=== PATIENT | female | born 1950 | race Caucasian/White ===

== ENCOUNTER 2021-09-29 10:56 | Outpatient (RCR) | payer MEDICARE, MEDICAID, SELFPAY ==
--- NOTE | 2021-09-29 12:15 | MHC.PT.EP ---
[facility] [place] Office [place] [facility] [place] [facility] [address] [phone] F: [phone] F: [phone] F: [phone] F: [phone] Physical Therapy Plan of Care Date of Evaluation: Date of Surgery: NA Diagnosis: Vestibular therapy for vertigo Assessment: Joy is a 71 year old female who is referred to PT for vesibular therapy for vertigo . Pt reports of having sudden onset of symptoms of vertigo, dizziness, unsteadiness, forgetfullness and memory loss about a year back. She denies any trauma or fall. On PT examination she presented with intact smooth pursuit, saccades, visual tracking, static and dynamic balance. Was negative for head thrust and VBI. Her DGI was 24/24. She was negative for nystagmus and vertigo in B carmona pikes and B roll test. Pt did not present with any symptoms of vestibular dysfunction. No therapy indicated at this time. Pt advised to return to therapy in case of return of symptoms. Frequency and Duration: The patient will be seen Short Term Goals: Executive Producer Goals: Treatment Plan: Modalities to reduce pain, spasms and effusion. Manual therapy to restore motion and function. Therapeutic exercise to improve strength and flexibility. Neuromuscular re-education for posture and balance. Therapeutic activities to return to functional activities of daily living. Electronically signed by: Elisabeth Javier PT DPT Please sign and return to therapist. Thank you for your referral.
--- NOTE | 2021-11-04 08:40 | MHC.PT.DC ---
[facility] [place] Office [place] Office [place] Office [address] 140 [facility] [phone] F: [phone] F: [phone] F: [phone] F: [phone] Physical Therapy Discharge Report Diagnosis: Vestibular therapy for vertigo Date of Surgery: NA Date of Evaluation: 09/29/21 Date of Discharge: 11/04/21 Treatments to Date: 1 Cancellations to Date: 0 No Shows to Date: Discharge Status: Discharge Summary: Joy did not present with any symptoms suggestive of vestibular dysfunction. She is therefore being d/c from PT. Electronically signed by: Elisabeth Javier PT DPT Please sign and return to therapist. Thank you for your referral.
== END 2021-11-04 08:41 | disposition home or self-care (01) ==
LOC: HO.PT 10:56
PROVIDERS: Visit Provider Psychiatry & Neurology Neurology
DX: R42 Dizziness and giddiness (principal)
CPT/HCPCS: 97112; 97161